=== PATIENT | female | born 1970 | race African-American/Black ===

== ENCOUNTER 2016-03-27 00:23 | Emergency (ER) | payer MEDICAID, OTHER ==
[~2016-03-27] VITALS: Ht 162.6 cm; Wt 68.0 kg
[2016-03-27] MEDS ORDERED: DEXAMETHASONE SOD PHOSPHATE 10 MG/ML VIAL ONE (01:24)
[2016-03-27] MEDS ORDERED: DEXAMETHASONE SOD PHOSPHATE 10 MG/ML VIAL IV ONE (01:30)
[2016-03-27] MEDS ORDERED: ALBUTEROL FS 2.5 MG/3 ML VIAL.NEB NEB ONE (01:30)
[2016-03-27] MEDS ORDERED: ALBUTEROL FS 2.5 MG/3 ML VIAL.NEB ONE (01:32)
[2016-03-27 03:00] VITALS: BP 134/82
== END 2016-03-27 03:02 | disposition home or self-care (01) ==
LOC: ER 00:24
DX: J45.901 Unspecified asthma with (acute) exacerbation (principal); F41.9 Anxiety disorder, unspecified; E11.9 Type 2 diabetes mellitus without complications
CPT/HCPCS: 71010; 94640 ×2; 96374; 99284; A4606; J1100; Z7610